=== PATIENT | male | born 1985 | race African-American/Black ===

== ENCOUNTER 2016-08-17 13:55 | Observation (INO) ==
[2016-08-17] MEDS ORDERED: SODIUM CHLORIDE 0.9% 1,000 ML IV STA (16:43)
[2016-08-17] MEDS ORDERED: PROMETHAZINE 25 MG/1 ML VIAL IV STA (16:43)
[2016-08-17] MEDS ORDERED: KETOROLAC 30 MG/1 ML VIAL IV STA (16:43)
--- NOTE | 2016-08-17 16:47 | Emergency Department Note ---
Arrival - Arrival Chief Complaint: Urogenital - Male Stated Complaint: kidney stones ED Nursing Triage Note: Pt c/o right lower back pain that radiates around into his right abd since Wednesday with nausea, vomiting, and has started having a fever. Pt was seen here on Wednesday dx with a kidney stone. Mode of Arrival: Ambulatory Limitations: No Limitations Source: Patient, Family Time Seen by Provider: 08/17/16 16:33 - History of Present Illness HPI Narrative: Patient presents to the ER today with lower abd pain and right flank pain. Patient was seen here on Wednesday and diagnosed with kidney stones. Patient states he has not gotten any better and started running fever yesterday. Max 101.3. He states he is also now constipated. He states he tried to call Urology this morning but no one would call him back. PCP- Dr. Campos Allergies- none PMHx- none Allergies/Adverse Reactions: Allergies Allergy/AdvReac Type Severity Reaction Status Date / Time No Known Allergies Allergy Verified 12/10/15 10:04 Home Medications: Home Medications Medication Instructions Recorded Confirmed Type HYDROmorphone TAB [Dilaudid Tab] 2 mg PO Q6H PRN #16 tablet 08/15/16 Rx Ondansetron Odt Tab [Zofran Odt] 4 mg PO Q6H PRN #12 tablet 08/15/16 Rx Tamsulosin [Flomax] 0.4 mg PO BEDTIME #7 capsule 08/15/16 Rx Review of System - Review of System 12 point system: reviewed and no additional remarkable complaints except as stated - Review of System Constitutional: Present: as per HPI, fever Gastrointestinal: Present: as per HPI, abdominal pain, nausea, constipation Medical,Surgical,& Family Hx - Family History Family History: Reports;: Family Diabetes - Social History Smoking Status: Never smoker Exam Physical Examination: General General appearance: alert, in obvious pain - Head [Head exam: Present: atraumatic, normocephalic, normal inspection] - Eye Eye exam: Present: normal appearance, PERRL, EOMI - ENT ENT exam: Present: normal exam, normal oropharynx, mucous membranes moist - Neck Neck exam: Present: normal inspection, full ROM, trachea midline - Chest Chest inspection: Present: normal inspection, symmetric chest wall rise - Respiratory Respiratory exam: Present: normal lung sounds bilaterally - Cardiovascular Cardiovascular exam: Present: regular rate, normal rhythm, normal heart sounds - Abdominal Exam Abdominal exam: Present: soft, nontender, normal bowel sounds, - Rectal Exam Rectal exam: Present: deferred - Extremities Exam Extremities exam: Present: normal inspection, full ROM, normal capillary refill - Back Exam Back exam: Present: normal inspection, full ROM - Neurological Exam Neurological exam: Present: alert, oriented X3, CN II-XII intact - Psychiatric Psychiatric exam: Present: normal affect, normal mood - Skin Skin exam: Present: warm, dry, intact, normal color, Vital Signs: Vital Signs Temperature 98.7 F 08/17/16 16:34 Pulse Rate 84 08/17/16 19:00 Respiratory Rate 20 08/17/16 19:00 Blood Pressure 124/80 08/17/16 19:00 O2 Sat by Pulse Oximetry 96 08/17/16 14:12 Course - Reevaluation(s) Time: 18:40 (Spoke with Hospitalist Service about this patient, they requested a KUB and blood cultures and instructed to call them back. ) Time: 18:50 (Updated family about plan of care. Voiced their understanding. ) Time: 19:07 (Spoke with Hospitalist, Dr. Martin will come see patient ) Results - Labs CBC & BMP: 08/17/16 16:39 08/17/16 16:39 Lab Results: I have reviewed the patients labs Labs: Laboratory Tests 08/17/16 16:39 WBC 8.1 RBC 5.22 Hgb 15.2 Hct 43.2 MCV 82.8 L MCH 29 MCHC 35.2 RDW 13.2 Plt Count 233 MPV 8.8 L Neut % (Auto) 70.2 Lymph % (Auto) 18.3 L [place] % (Auto) 10.6 Eos % (Auto) 0.6 Baso % (Auto) 0.1 Neut # (Auto) 5.7 Lymph # (Auto) 1.5 [place] # (Auto) 0.9 H Eos # (Auto) 0.1 Baso # (Auto) 0.0 Immature Gran % 0.2 Nucleated RBC % 0.0 Immature Gran # 0.02 Nucleated RBCs # 0.00 Laboratory Tests 08/17/16 16:39 Sodium 138 Potassium 4.4 Chloride 100 Carbon Dioxide 31 Anion Gap 11.4 BUN 20 H Creatinine 2.10 H GFR Calculation 54 BUN/Creatinine Ratio 9.00 Glucose 97 Calculated Osmolality 277.7 Calcium 9.5 Total Bilirubin 0.40 AST 14 ALT 27 Alkaline Phosphatase 95 Total Protein 8.1 Albumin 4.2 Globulin 3.9 H Albumin/Globulin Ratio 1.0 L Laboratory Tests 08/17/16 16:39 Urine Color Yellow Urine Appearance Clear Urine pH 6.0 Ur Specific [place] 1.014 Urine Protein Negative Urine Glucose (UA) Negative Urine Ketones Negative Urine Blood Small Urine Nitrate Negative Urine Bilirubin Negative Urine Urobilinogen < 2.0 H Urine Leukocytes Negative Urine RBC 1 Urine WBC 1 Ur Squamous Epith Cells Occasional Ur Culture Indicated? Ordered separately - Impressions Laboratory Tests 08/17/16 16:39 Urine Color Yellow Urine Appearance Clear Urine pH 6.0 Ur Specific [place] 1.014 Urine Protein Negative Urine Glucose (UA) Negative Urine Ketones Negative Urine Blood Small Urine Nitrate Negative Urine Bilirubin Negative Urine Urobilinogen < 2.0 H Urine Leukocytes Negative Urine RBC 1 Urine WBC 1 Ur Squamous Epith Cells Occasional Ur Culture Indicated? Ordered separately Generalized abdominal pain. Comparison: August 15, 2016. The heart is normal in size. Atelectasis is present at the lung bases. The bowel gas pattern is normal. The right ureteral calculus has not progressed, and is at the L3-L4 interspace on the right. Pelvic calcifications remain stable. Osseous structures are unremarkable. Impression: No change in the position of the right ureteral calculus. PROCEDURE INTERPRETED AT [facility] DEPARTMENT OF RADIOLOGY Final Report Signed by: Dr. Emmy Soares Dictated By: Emmy Soares 08/17/161856 Signed By: Emmy Soares MD 08/17/161857 Technologist: GENNA */* - Diagnostic Findings Procedure: KUB x-ray: report reviewed by me (See Impression ) Disposition Clinical Impression: Ureteral stone with hydronephrosis, Kidney function abnormal Case discussed with: patient, patient's family Disposition: Still a Patient Condition: Stable Time of Disposition: 19:41 (Dr. Martin to admit patient )
[2016-08-17 17:03] LABS: Apearance,Urine CLEAR (Clear); Bilirubin,Urine Negative (Negative); Blood, Urine Small mg/dL (Negative); Glucose,Urine (UA) Negative (Negative); Ketones,Urine Negative (Negative); Nitrite,Urine Negative (Negative); Protein,Urine Negative; RBC,Urine 1 /HPF (0-4); Squamous Epithelial Cell,Urine Occasional /HPF (0-10); Urine Color Yellow (Yellow); Urine Specific Gravity 1.014 (1.001-1.035); Urine Urobilinogen < 2.0 EU/DL (0.2-1.0); WBC,Urine 1 /HPF (0-6)
[2016-08-17] MEDS ORDERED: KETOROLAC 30 MG/1 ML VIAL ONE (17:24)
[2016-08-17] MEDS ORDERED: PROMETHAZINE 25 MG/1 ML VIAL ONE (17:25)
[2016-08-17 17:41] LABS: Basophils % 0.1 % (0.0-0.8); Eosinophils # 0.1 10*3/uL (0.0-0.87); Eosinophils % 0.6 % (0.00-10.9); Hematocrit 43.2 VOL% (42.0-52.0); Hemoglobin 15.2 GM/DL (14.0-18.0); Immature Granulocytes % 0.2 %; Immature Granulocytes Absolute 0.02 #; Lymphocytes # 1.5 10*3/uL (1.4-4.0); Lymphocytes % 18.3 % (21.2-54.2); Mean Corpuscular HGB Conc 35.2 GM/DL (32-36); Mean Corpuscular Hemoglobin 29 PG (27-34); Mean Corpuscular Volume 82.8 FL (87-102); Mean Platelet Volume 8.8 FL (9.6-12.0); Monocytes # 0.9 10*3/uL (0.11-0.8); Monocytes % 10.6 % (1.7-12.7); Neutrophils # 5.7 10*3/uL (1.4-7.4); Neutrophils % 70.2 % (38.7-73.9); Platelet Count 233 T/CUMM (130-400); Red Blood Count 5.22 MC/CUMM (3.8-5.5); Red Cell Distribution Width 13.2 % (9.3-17.3); White Blood Count 8.1 T/CUMM (4-12)
[2016-08-17 18:16] LABS: Albumin 4.2 G/DL (3.4-5.0); Bilirubin,Total 0.4 MG/DL (0.2-1.0); Calcium 9.5 MG/DL (8.5-10.1); Osmolality,Calculated 277.7 MOS/KG (273-304); Potassium 4.4 MMOL/L (3.5-5.1); Total Protein 8.1 G/DL (6.4-8.3)
--- NOTE | 2016-08-17 19:01 | XRay Report ---
KUB. Indication: Generalized abdominal pain. Comparison: August 15, 2016. The heart is normal in size. Atelectasis is present at the lung bases. The bowel gas pattern is normal. The right ureteral calculus has not progressed, and is at the L3-L4 interspace on the right. Pelvic calcifications remain stable. Osseous structures are unremarkable. Impression: No change in the position of the right ureteral calculus. PROCEDURE INTERPRETED AT [facility] DEPARTMENT OF RADIOLOGY Final Report Signed by: Dr. Emmy Soares
--- NOTE | 2016-08-17 19:59 | Hospitalist History & Physical ---
Assessment and Plan (1) Ureteral stone with hydronephrosis Status: Acute Assessment and plan: The patient is admitted hospital with right ureteral stone. We will give IV hydration, Levaquin IV antibiotic, and obtain urology evaluation. The patient requires IV narcotic medication and antiemetic. Current Visit: Yes (2) Kidney function abnormal Status: Acute Current Visit: Yes History of Present Illness Chief complaint: Right flank pain History of present illness: Mr. Smith is a 31 year old male who presented to the emergency room with abdominal and right flank pain [address] of abdomen revealed right ureteral nephrolithiasis. The patient was discharged home on oral Dilaudid. The patient has developed abdominal distention and mild to moderate ileus. The patient has not passed the stone and KUB tonight shows a stone in the similar position it was 48 hours ago. The patient states that he has pain and fever. The patient's symptoms are moderate, colicky, and worsening. The patient is admitted the hospital for urology evaluation Home Medications Medication Instructions Recorded Confirmed Type HYDROmorphone TAB [Dilaudid Tab] 2 mg PO Q6H PRN #16 tablet 08/15/16 Rx Ondansetron Odt Tab [Zofran Odt] 4 mg PO Q6H PRN #12 tablet 08/15/16 Rx Tamsulosin [Flomax] 0.4 mg PO BEDTIME #7 capsule 08/15/16 Rx Allergies Allergy/AdvReac Type Severity Reaction Status Date / Time No Known Allergies Allergy Verified 12/10/15 10:04 Medical,Surgical,& Family Hx - Medical History Genitourinary: History of: Prostate Problems - Family History Family History: Reports;: Family Diabetes - Social History Smoking Status: Never smoker Marital Status: Single Lives With:: Alone Functional capacity: independent ambulation 12 point system: reviewed and no additional remarkable complaints except as stated Exam - Constitutional Vitals: Period Temp Pulse Resp BP Sys/Donohue Pulse Ox Last 24 Hr 98.7 F-98.7 F 84-98 18-20 124-134/80-85 96 Exam: Constitutional System: Moderate distress. No tremulousness. Head: Normocephalic, atraumatic. Ears, Nose and Throat System: No evidence of Otitis or Mastoiditis. No epistaxis or discharge Eyes System: Pupils equal, round, and reactive. Extraocular muscles intact. Neck: Supple, without adenopathy, No jugular venous distention. No thyromegaly , neck mass, or prior surgery apparent. Respiratory System: Chest clear to auscultation. Cardiovascular System: Heart with regular rate and rhythm. No murmur. GI System: Abdomen soft, moderately generally tender without surgical signs. Hypo-active bowel sounds present. Musculoskeletal System: limbs with no pedal edema. Full distal pulses. Neurological System: No discernable sensory deficit. No aphasia Psychiatric System: Conversation is rational Results - Labs CBC & BMP: 08/17/16 16:39 08/17/16 16:39 Lab Results: I have reviewed the past 24 hour labs
[2016-08-17] MEDS ORDERED: ONDANSETRON 4 MG/2 ML VIAL IV PRN (21:46)
[2016-08-17] MEDS ORDERED: ACETAMINOPHEN 325 MG TABLET PO PRN (21:46)
[2016-08-17] MEDS ORDERED: TAMSULOSIN 0.4 MG CAPSULE PO SCH (21:46)
[2016-08-17] MEDS ORDERED: ENOXAPARIN 40 MG/0.4 ML SYRINGE SUBCUT SCH (21:46)
[2016-08-17] MEDS ORDERED: LEVOFLOXACIN INJ 500 MG in PREMIX 1 EACH IV SCH (21:46)
[2016-08-17] MEDS ORDERED: ZALEPLON 5 MG CAPSULE PO PRN (21:46)
[2016-08-17] MEDS: SODIUM CHLORIDE 0.9% 1,000 ML IV SCH (22:03)
[2016-08-18] MEDS: MORPHINE 2 MG/1 ML SYRINGE IV PRN ×2 (05:14→11:28)
[2016-08-18] MEDS: SODIUM CHLORIDE 0.9% 1,000 ML IV SCH (05:21)
[2016-08-18 05:34] LABS: Basophils % 0.4 % (0.0-0.8); Eosinophils # 0.1 10*3/uL (0.0-0.87); Eosinophils % 2.6 % (0.00-10.9); Hematocrit 37.1 VOL% (42.0-52.0); Hemoglobin 12.6 GM/DL (14.0-18.0); Immature Granulocytes % 0.2 %; Immature Granulocytes Absolute 0.01 #; Lymphocytes % 40.4 % (21.2-54.2); Mean Corpuscular Hemoglobin 28 PG (27-34); Mean Corpuscular Volume 83.7 FL (87-102); Mean Platelet Volume 9.4 FL (9.6-12.0); Monocytes # 0.6 10*3/uL (0.11-0.8); Monocytes % 12.2 % (1.7-12.7); Neutrophils # 2.2 10*3/uL (1.4-7.4); Neutrophils % 44.2 % (38.7-73.9); Platelet Count 217 T/CUMM (130-400); Red Blood Count 4.43 MC/CUMM (3.8-5.5); Red Cell Distribution Width 13.1 % (9.3-17.3)
[2016-08-18 06:09] LABS: Magnesium 2.6 MG/DL (1.8-2.4); Potassium 4.5 MMOL/L (3.5-5.1)
--- NOTE | 2016-08-18 07:45 | Urology Consultation ---
History of Present Illness - Data of Consult Consult date: 08/18/16 - Consult Narrative History of present illness: Mr. Smith is a 31 year old male This 31-year-old black male was admitted to the hospital with a several day history of right flank pain. He has a 4 mm stone in the proximal right ureter that is not moved and is visible on KUB. Because he has persistent pain on the recommended we proceed with shockwave lithotripsy and I discussed that with him today. I discussed the possible complications of failure of the procedure obstruction from fragments and hematuria. I am been keeping him n.p.o. and is okay with me to discharge him today with his IV to outpatient surgery for lithotripsy this afternoon CC: Austyn Holcomb MD - Home Medications and Allergies Home Medications: Home Medications Medication Instructions Recorded Confirmed Type HYDROmorphone TAB [Dilaudid Tab] 2 mg PO Q6H PRN #16 tablet 08/15/16 08/18/16 Rx Ondansetron Odt Tab [Zofran Odt] 4 mg PO Q6H PRN #12 tablet 08/15/16 08/18/16 Rx Tamsulosin [Flomax] 0.4 mg PO BEDTIME #7 capsule 08/15/16 08/18/16 Rx Allergies/Adverse Reactions: Allergies Allergy/AdvReac Type Severity Reaction Status Date / Time No Known Allergies Allergy Verified 12/10/15 10:04 Exam - Constitutional Vitals: Period Temp Pulse Resp BP Sys/Donohue Pulse Ox Last 24 Hr 97.9 F-99.5 F 74-98 14-20 108-134/56-85 93-97 Results - Labs CBC & BMP: 08/18/16 04:17 08/18/16 04:17
[2016-08-18] MEDS ORDERED: PANTOPRAZOLE 40 MG TABLET PO SCH (09:00)
--- NOTE | 2016-08-18 09:20 | Discharge Summary ---
Hospital Course - Hospital Course Hospital Course: Mr. Smith is a 31 year old male who presented to the emergency room with abdominal and right flank pain [address] of abdomen revealed right ureteral nephrolithiasis. The patient was discharged home on oral Dilaudid. The patient has developed abdominal distention and mild to moderate ileus. The patient has not passed the stone and on admission shows a stone in the similar position it was 48 hours ago. He also had fever at the time of admission. He was admitted and started on hydration he still have some discomfort in the left flank area but is better he was seen by Dr. Kohli and plan to do lithotripsy this afternoon and like him to be discharged to outpatient facility for procedure. Noted patient has been afebrile and had normal white count and his urinalysis did not reveal only 1 WBC. There is no other suffered source of infection suspected. We will discontinue antibiotics patient to return if febrile again. In addition patient has constipation no bowel movement for last couple days. He has been on narcotics and combination of these pain and narcotics probably contributing to that he has no vomiting. He is instructed to follow with PCP or return if his bowels do not move after procedure. Also noted that his hemoglobin hematocrit dropped from admission but he was hydrated also. This need to be followed up. Patient does not have any hematuria hematochezia hematemesis or melena. I have instructed patient to follow-up with his primary care provider. He also has acute kidney injury but his renal function stable from yesterday. Acute kidney injury might be likely due to NSAIDs, dehydration and nephrolithiasis. He has to stay hydrated and follow up with his primary care provider and have repeat renal function in couple days. He has been voiding quite well at present. I have informed the patient that I would have kept him here but lithotripsy cannot be done as inpatient and he has to go to Dr. osborn in his office to perform procedure Diagnosis - Discharge Diagnosis (1) Acute kidney injury Status: Acute (2) Kidney function abnormal Status: Acute (3) Constipation Status: Acute (4) Anemia Status: Acute Discharge Plan - Discharge Data Disposition: Disch To Home/Self Care Condition at Discharge: Stable Discharge Diet: advance to your usual diet Activity: resume usual activities as tolerated - Discharge Medications Continue HYDROmorphone TAB [Dilaudid Tab] 2 mg PO Q6H PRN #16 tablet PRN Reason: Abdominal Pain Ondansetron Odt Tab [Zofran Odt] 4 mg PO Q6H PRN #12 tablet PRN Reason: Vomiting Discontinued Tamsulosin [Flomax] 0.4 mg PO BEDTIME #7 capsule - Follow Up or Referral - Forms/Instructions Exam - Constitutional Vitals: Period Temp Pulse Resp BP Sys/Donohue Pulse Ox Last 24 Hr 97.9 F-99.5 F 74-98 14-20 108-134/56-85 93-97 General appearance: no acute distress - Respiratory Respiratory exam: Present: clear to auscultation bilaterally. Absent: rales, rhonchi - Cardiovascular Cardiovascular exam: Present: regular rate and rhythm. Absent: tachycardia - GI/Abdominal GI/Abdominal exam: Present: normal bowel sounds, soft. Absent: ascites, distended, tenderness - Extremities Exam Extremities exam: Present: normal inspection, edema - Neurological Exam Neurological exam: Present: alert, oriented X3 Discharge Results Procedures and tests throughout hospitalization: Pending Orders 08/17/16 16:39 Urine Culture Stat 08/17/16 19:26 Blood Culture Stat Labs on day of discharge: Labs from last 24 hours 08/18/16 08/18/16 08/17/16 04:17 04:17 16:39 WBC 5.0 D 8.1 RBC 4.43 5.22 Hgb 12.6 L D 15.2 Hct 37.1 L 43.2 MCV 83.7 L 82.8 L MCH 28 29 MCHC 34.0 35.2 RDW 13.1 13.2 Plt Count 217 233 MPV 9.4 L 8.8 L Neut % (Auto) 44.2 70.2 Lymph % (Auto) 40.4 18.3 L [place] % (Auto) 12.2 10.6 Eos % (Auto) 2.6 0.6 Baso % (Auto) 0.4 0.1 Neut # (Auto) 2.2 5.7 Lymph # (Auto) 2.0 1.5 [place] # (Auto) 0.6 0.9 H Eos # (Auto) 0.1 0.1 Baso # (Auto) 0.0 0.0 Immature Gran % 0.2 0.2 Nucleated RBC % 0.0 0.0 Immature Gran # 0.01 0.02 Nucleated RBCs # 0.00 0.00 Sodium 143 Potassium 4.5 Chloride 108 H Carbon Dioxide 27 Anion Gap 12.5 BUN 26 H Creatinine 2.00 H GFR Calculation 57 BUN/Creatinine Ratio 13.00 Glucose 100 Calculated Osmolality 289.0 Calcium 8.0 L Magnesium 2.6 H Total Bilirubin AST ALT Alkaline Phosphatase Total Protein Albumin Globulin Albumin/Globulin Ratio Urine Color Urine Appearance Urine pH Ur Specific [place] Urine Protein Urine Glucose (UA) Urine Ketones Urine Blood Urine Nitrate Urine Bilirubin Urine Urobilinogen Urine Leukocytes Urine RBC Urine WBC Ur Squamous Epith Cells Ur Culture Indicated? 08/17/16 08/17/16 16:39 16:39 WBC RBC Hgb Hct MCV MCH MCHC RDW Plt Count MPV Neut % (Auto) Lymph % (Auto) [place] % (Auto) Eos % (Auto) Baso % (Auto) Neut # (Auto) Lymph # (Auto) [place] # (Auto) Eos # (Auto) Baso # (Auto) Immature Gran % Nucleated RBC % Immature Gran # Nucleated RBCs # Sodium 138 Potassium 4.4 Chloride 100 Carbon Dioxide 31 Anion Gap 11.4 BUN 20 H Creatinine 2.10 H GFR Calculation 54 BUN/Creatinine Ratio 9.00 Glucose 97 Calculated Osmolality 277.7 Calcium 9.5 Magnesium Total Bilirubin 0.40 AST 14 ALT 27 Alkaline Phosphatase 95 Total Protein 8.1 Albumin 4.2 Globulin 3.9 H Albumin/Globulin Ratio 1.0 L Urine Color Yellow Urine Appearance Clear Urine pH 6.0 Ur Specific [place] 1.014 Urine Protein Negative Urine Glucose (UA) Negative Urine Ketones Negative Urine Blood Small Urine Nitrate Negative Urine Bilirubin Negative Urine Urobilinogen < 2.0 H Urine Leukocytes Negative Urine RBC 1 Urine WBC 1 Ur Squamous Epith Cells Occasional Ur Culture Indicated? Ordered separately DS: Provider Date of admission: 08/17/16 19:24 Primary care physician: . No PCP Attending physician on admission: Hank Parikh DO Consults: 08/17/16 21:46 Consult to Physician [CONS] Routine Comment: kidney stone Right Consulting Provider: Francisco J Kohli Person Notified: MD FUNEZ Date Notified: 08/18/16 Time Notified: 09:04 Discharging clinician: Austyn Holcomb MD
[2016-08-18 10:52] LABS: Calcium 8.3 MG/DL (8.5-10.1); Osmolality,Calculated 284.3 MOS/KG (273-304); Potassium 4.5 MMOL/L (3.5-5.1)
[2016-08-18 12:18] VITALS: BP 133/75
== END 2016-08-18 14:07 | disposition home or self-care (01) ==
LOC: N.ED 13:55 → SUATTDRO 19:24 → INTOOBSV 19:24 → N.EDINP 19:24 → N.5E 21:19
PROVIDERS: ADMIT Internal Medicine; ATTEND Internal Medicine